=== PATIENT | male | born 1990 | race Caucasian/White ===

== ENCOUNTER 2016-06-05 11:53 | Outpatient (CLI) | payer OTHER ==
[2016-06-05 13:28] LABS: #Eosinphils 0.2 thou/uL (0.0-0.7); #Monocytes 0.5 thou/uL (0.11-0.59); #Neutrophils 2.9 thou/uL (1.40-6.50); %Basophils 0.7 % (0.0-1.0); %Eosinophils 4.2 % (0.0-10.0); Hematocrit 49.6 % (42.0-52.0); Mean Platelet Volume 6.3 fL (7.4-10.4); Red Blood Cell (RBC) Count 5.56 mill/uL (4.70-6.10); White Blood Cell (WBC) Count 5.6 thou/uL (4.8-10.8)
[2016-06-05 13:52] LABS: ALT (SGPT) 11 U/L (0-55); AST (SGOT) 18 U/L (5-34); Alkaline Phosphatase 73 U/L (40-150); Anion Gap 16 mmol/L (10-20); BUN (Urea Nitrogen) 21 mg/dL (8.9-20.6); Bilirubin, Total 0.6 mg/dL (0.2-1.2); Calc. Creatinine Clearance 0 mL/min (70-130); Calcium 9.7 mg/dL (7.8-10.44); Carbon Dioxide 26 mmol/L (22-29); Chloride 103 mmol/L (98-107); Estimated GFR-MDRD 68; Globulin 2.9 g/dL (2.4-3.5); Protein, Total 7.7 g/dL (6.0-8.3)
== END 2016-06-05 11:54 | disposition home or self-care (01) ==
LOC: HPCALD 11:53
PROVIDERS: ATTEND Family Medicine
DX: F32.1 Major depressive disorder, single episode, moderate (principal)
CPT/HCPCS: 36415; 80053; 84443; 85025

== ENCOUNTER 2019-05-14 10:21 | Outpatient (CLI) | payer OTHER ==
--- NOTE | 2019-05-14 21:10 | RAD ---
LUMBAR SPINE THREE VIEWS: 05/14/19 No fracture, dislocation, or disc spaces narrowing was seen. The SI joints are symmetrical in appeara nce. Large amounts of fecal material are seen in the colon. The ribs appear intact. IMPRESSION: No acute bony findings. POS: HOME
== END 2019-05-14 10:22 | disposition home or self-care (01) ==
LOC: BURRAD 10:21
PROVIDERS: ATTEND Physician Assistant
DX: M54.5 Low back pain (principal)
CPT/HCPCS: 72100